=== PATIENT | female | born 1960 | race Caucasian/White ===

== ENCOUNTER → 2017-08-20 13:46 | Emergency (ER) | payer BC, OTHER ==
[~2017-08-20 13:46] MED LIST: Aspirin Low Dose CHEW TAB* 81 MG PO ONE
[2017-08-20 14:52] LABS: Albumin 3.8 g/dL (3.2-5.2); BUN/Creatinine Ratio 23.2 (8-20); Calcium 8.9 mg/dL (8.6-10.3); EGFR African American 113.6 (>60); EGFR Non-African American 88.3 (>60); Globulin 2.5 g/dL (2-4); Potassium 4.4 mmol/L (3.5-5.0); Total Bilirubin 0.2 mg/dL (0.2-1.0); Total Protein 6.3 g/dL (6.4-8.9)
[2017-08-20 14:53] LABS: Hematocrit 37 % (35-47); Hemoglobin 12.5 g/dl (12.0-16.0); Mean Corpuscular HGB Conc 34 g/dl (31-36); Mean Corpuscular Hemoglobin 32 pg (27-31); Mean Corpuscular Volume 94 fL (80-97); Mean Platelet Volume 7 um3 (7.4-10.4); Red Blood Count 3.94 10^6/ul (4.0-5.4); Red Cell Distribution Width 13 % (10.5-15)
--- NOTE | 2017-08-20 15:15 | RAD ---
Indication: Chest pain. Single frontal view of the chest performed at 1418 hours was reviewed. Comparison is made with previous exam dated March 14, 2008. No mediastinal shift is noted. Heart is of normal size and configuration. Lung hickey appear clear. IMPRESSION: NO ACTIVE CARDIOPULMONARY DISEASE IS NOTED.
[2017-08-20 15:25] LABS: T4 6.97 mcg/mL (6.09-12.23)
[2017-08-20 15:30] LABS: TSH (Thyroid Stimulating Horm) 1.78 mcIU/mL (0.34-5.60)
[2017-08-20 18:39] VITALS: BP 150/67
--- NOTE | 2017-08-22 08:07 | ED ---
Luis A Mortensen Angela, scribed for Kevin Mathews MD on 08/20/17 at 1403 . HPI Chest Pain - HPI Summary HPI Summary: This pt is a 57 y/o female presenting to [facility] c/o intermittent chest pain x3 weeks. Pt reports 3 weeks ago she was lying in bed and had sudden onset of chest pain. 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 Pt states last night she had chest pain that lasted 2-3 minutes. She reports she is just anxious. Pt denies nausea, vomiting , dizziness, SOB. She denies any current chest pain, she states her chest is tight. She denies any PMHx. Pt is currently on Mayi. - History of Current Complaint Chief Complaint: EDChestPainROMI Time Seen by Provider: 08/20/17 13:56 Hx Obtained From: Patient Onset/Duration: Started Days Ago, Still Present Timing: Intermittent, Lasting Minutes Current Severity: None Pain Intensity: 0 Pain Scale Used: 0-10 Numeric Chest Pain Location: Diffuse Chest Pain Radiates: Yes Chest Pain Radiates To:: Arm - left Character: Tightness Associated Signs and Symptoms: Positive: Chest Pain. Negative: Dizziness, Shortness of Breath, Nausea, Vomiting - Allergy/Home Medications Allergies/Adverse Reactions: Allergies Allergy/AdvReac Type Severity Reaction Status Date / Time Sulfa Antibiotics Allergy Itching Verified 08/20/17 13:49 Home Medications: Home Medications Fexofenadine-Pseudoephedrine [Mayi-D 24 Hour Allergy] 1 tab PO DAILY PRN 01/30 [History Confirmed 08/20/17] PMH/Surg Hx/FS Hx/Imm Hx Endocrine/Hematology History: Denies: Hx Diabetes Cardiovascular History: Denies: Hx Hypertension Infectious Disease History: No Infectious Disease History: Denies: Traveled Outside the [place] in Last 30 Days - Family History Known Family History: Positive: Cardiac Disease - Social History Alcohol Use: None Substance Use Type: Reports: None Smoking Status (MU): Never Smoked Tobacco Review of Systems Negative: Fever, Chills Eyes: Negative Positive: Chest Pain Negative: Shortness Of Breath Negative: Vomiting, Nausea Genitourinary: Negative Skin: Negative Neurological: Negative - dizziness Positive: Anxious All Other Systems Reviewed And Are Negative: Yes Physical Exam - Summary Physical Exam Summary: VITAL SIGNS: Reviewed. GENERAL: Patient is a well-developed and nourished female who is lying comfortable in the stretcher. Patient is not in any acute respiratory distress. Pt is very happy. HEAD AND FACE: No signs of trauma. No ecchymosis, hematomas or skull depressions. No sinus tenderness. EYES: PERRLA, EOMI x 2, No injected conjunctiva, no nystagmus. EARS: Hearing grossly intact. Ear canals and tympanic membranes are within normal limits. MOUTH: Oropharynx within normal limits. NECK: Supple, trachea is midline, no adenopathy, no JVD, no carotid bruit, no c- spine tenderness, neck with full ROM. CHEST: Symmetric, no tenderness at palpation LUNGS: Clear to auscultation bilaterally. No wheezing or crackles. CVS: Regular rate and rhythm, S1 and S2 present, no murmurs or gallops appreciated. ABDOMEN: Soft, non-tender. No signs of distention. No rebound no guarding, and no masses palpated. Bowel sounds are normal. EXTREMITIES: FROM in all major joints, no edema, no cyanosis or clubbing. NEURO: Alert and oriented x 3. No acute neurological deficits. Speech is normal and follows commands. SKIN: Dry and warm Triage Information Reviewed: Yes Vital Signs On Initial Exam: Initial Vitals Temp Pulse Resp BP Pulse Ox 96.5 F 75 16 151/61 99 08/20/17 13:49 08/20/17 13:49 08/20/17 13:49 08/20/17 13:49 08/20/17 13:49 Vital Signs Reviewed: Yes Diagnostics - Vital Signs Vital Signs Temp Pulse Resp BP Pulse Ox 08/20/17 13:49 96.5 F 75 16 151/61 99 - Laboratory Lab Results: Lab Results 08/20/17 08/20/17 08/20/17 Range/Units 14:25 14:25 17:07 WBC 6.0 (3.5-10.8) 10^3/ul RBC 3.94 L (4.0-5.4) 10^6/ul Hgb 12.5 (12.0-16.0) g/dl Hct 37 (35-47) % MCV 94 (80-97) fL MCH 32 H (27-31) pg MCHC 34 (31-36) g/dl RDW 13 (10.5-15) % Plt Count 222 (150-450) 10^3/ul MPV 7 L (7.4-10.4) um3 Neut % (Auto) 54.2 (38-83) % Lymph % (Auto) 34.5 (25-47) % [place] % (Auto) 7.1 (1-9) % Eos % (Auto) 3.6 (0-6) % Baso % (Auto) 0.6 (0-2) % Absolute Neuts (auto) 3.2 (1.5-7.7) 10^3/ul Absolute Lymphs (auto) 2.1 (1.0-4.8) 10^3/ul Absolute Monos (auto) 0.4 (0-0.8) 10^3/ul Absolute Eos (auto) 0.2 (0-0.6) 10^3/ul Absolute Basos (auto) 0 (0-0.2) 10^3/ul Absolute Nucleated RBC 0 10^3/ul Nucleated RBC % 0.1 Sodium 136 (133-145) mmol/L Potassium 4.4 (3.5-5.0) mmol/L Chloride 108 (101-111) mmol/L Carbon Dioxide 24 (22-32) mmol/L Anion Gap 4 (2-11) mmol/L BUN 16 (6-24) mg/dL Creatinine 0.69 (0.51-0.95) mg/dL Est GFR ( Amer) 113.6 (>60) Est GFR (Non-Af Amer) 88.3 (>60) BUN/Creatinine Ratio 23.2 H (8-20) Glucose 98 (70-100) mg/dL Calcium 8.9 (8.6-10.3) mg/dL Total Bilirubin 0.20 (0.2-1.0) mg/dL AST 18 (13-39) U/L ALT 14 (7-52) U/L Alkaline Phosphatase 76 (34-104) U/L CK-MB (CK-2) 3.2 (0.6-6.3) ng/mL Troponin I 0.00 0.00 (<0.04) ng/mL Total Protein 6.3 L (6.4-8.9) g/dL Albumin 3.8 (3.2-5.2) g/dL Globulin 2.5 (2-4) g/dL Albumin/Globulin Ratio 1.5 (1-3) TSH 1.78 (0.34-5.60) mcIU/mL Thyroxine (T4) 6.97 (6.09-12.23) mcg/mL Result Diagrams: 08/20/17 14:25 08/20/17 14:25 Lab Statement: Any lab studies that have been ordered have been reviewed, and results considered in the medical decision making process. - Radiology Chest XR Xray Interpretation: No Acute Changes - IMPRESSION: No active cardiopulmonary disease is noted. ED physician has reviewed this radiology report and agrees. Radiology Interpretation Completed By: Radiologist - EKG 1419 Cardiac Rate: NL EKG Rhythm: Sinus Rhythm - at 61 bpm EKG Interpretation: No ST elevation Chest Pain Course/Dx - Course Assessment/Plan: This pt is a 57 y/o female presenting to [facility] c/o intermittent chest pain x3 weeks. Pt reports 3 weeks ago she was lying in bed and had sudden onset of chest pain. 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 Pt states last night she had chest pain that lasted 2-3 minutes. She reports she is just anxious. Pt denies nausea, vomiting, dizziness, SOB. She denies any current chest pain, she states her chest is tight. She denies any PMHx. Pt is currently on Mayi. Test results without any significant abnormalities, troponin 1 is 0.00 and troponin 2 (4 hours later) is 0.00. Chest XR shows no active cardiopulmonary disease is noted. I have no suspicion for PE, since the pt is not hypoxic or tachycardic. The pt will be discharged home with follow up from his PCP. Pt has a history of anxiety and was given a prescription for Atarax. Pt is hemodynamically stable, alert and oriented x3. - Chest Pain Differential Diagnosis/HQI/PQRI: Acute ME, ACS, Angina, CHF, Chest Wall, GI Disease, Lower Respiratory Infection - Diagnoses Provider Diagnoses: Chest pain, Anxiety Discharge - Discharge Plan Condition: Stable Disposition: HOME Prescriptions: hydrOXYzine HCL TAB* [Atarax 25 MG TAB*] 25 mg PO TID PRN #20 tab PRN Reason: Anxiety Patient Education Materials: Chest Pain (ED), Anxiety (ED) Referrals: Kevon Castellanos MD [Primary Care Provider] - Additional Instructions: Please follow up with your primary care provider. RETURN TO THE ED FOR ANY WORSENING OR NEW SYMPTOMS. The documentation as recorded by the Luis A oliveira Angela accurately reflects the service I personally performed and the decisions made by , Kevin Mathews MD.
== END | disposition home or self-care (01) ==
LOC: ED 13:46
DX: R07.9 Chest pain, unspecified (principal); F41.9 Anxiety disorder, unspecified; Z88.2 Allergy status to sulfonamides
CPT/HCPCS: 36415; 71010; 80053; 82553; 84436; 84443; 84484; 85025; 93005; 99282; A9270-GY